=== PATIENT | male | born 1945 | race Caucasian/White ===

== ENCOUNTER → 2021-03-25 | Emergency (ER) | payer MEDICARE ==
[~2021-03-25] VITALS: Ht 177.8 cm; Wt 84.0 kg
[2021-03-25 09:03] VITALS: BP 117/76
== END | disposition home or self-care (01) ==
LOC: ER 08:49
DX: U07.1 COVID-19 (principal); E86.0 Dehydration; R06.02 Shortness of breath
CPT/HCPCS: 71045; 99283

== ENCOUNTER 2021-04-02 09:02 | Emergency (ER) | payer MEDICARE ==
[~2021-04-02] VITALS: Ht 177.8 cm; Wt 84.1 kg
[2021-04-02 09:58] LABS: EOSINOPHILS # (AUTO) 0.2 X10'3 (0-0.9); LYMPHOCYTES # (AUTO) 1.1 X10'3 (1.1-4.8); MEAN PLATELET VOLUME 7.4 FL (7.4-10.4); MONOCYTES # (AUTO) 1.4 X10'3 (0-0.9)
[2021-04-02 09:59] LABS: BASOPHILS % (AUTO) 0.6 % (0-1); EOSINOPHILS % (AUTO) 2.6 % (0-6); HEMATOCRIT 50.7 % (42.0-52.0); HEMOGLOBIN 17.2 g/dl (14.0-17.9); LYMPHOCYTES % (AUTO) 16.7 % (21-51); MEAN CORPUSCULAR HEMOGLOBIN 32.1 PG (27.0-31.0); MEAN CORPUSCULAR HGB CONC 33.8 g/dL (33.0-36.5); MEAN CORPUSCULAR VOLUME 94.9 FL (78-98); MONOCYTES % (AUTO) 20.9 % (2-12); NEUTROPHILS % (AUTO) 59.2 % (42-75); PLATELET COUNT 600 X10'3 (140-440); RED BLOOD COUNT 5.34 X10'6 (4.70-6.10); RED CELL DISTRIBUTION WIDTH 13.1 % (11.5-14.5); WHITE BLOOD COUNT 6.7 X10'3 (4.5-11.0)
[2021-04-02] MEDS ORDERED: [UNRECOGNIZED DRUG - OTHER] IV ONE (10:10)
[2021-04-02 10:20] LABS: PLATELET ESTIMATE INCREASED; TOTAL CELLS COUNTED 100
[2021-04-02 12:44] VITALS: BP 117/80
== END 2021-04-02 12:46 | disposition home or self-care (01) ==
LOC: ER 09:03
DX: U07.1 COVID-19 (principal); J18.9 Pneumonia, unspecified organism
CPT/HCPCS: 36415; 71045; 85007; 85025; 99284; M0243; Q0243

== ENCOUNTER 2024-04-05 09:19 | Inpatient (IN) | payer MEDICARE, OTHER ==
[~2024-04-05] VITALS: Ht 177.8 cm; Wt 87.4 kg
[2024-04-05 10:18] LABS: BASOPHILS % (AUTO) 0.3 % (0-1); EOSINOPHILS % (AUTO) 0 % (0-6); HEMATOCRIT 56.4 % (42.0-52.0); LYMPHOCYTES # (AUTO) 0.4 X10'3 (1.1-4.8); LYMPHOCYTES % (AUTO) 6.1 % (21-51); MEAN CORPUSCULAR HEMOGLOBIN 32.6 PG (27.0-31.0); MEAN CORPUSCULAR HGB CONC 34.5 g/dL (33.0-36.5); MEAN CORPUSCULAR VOLUME 94.4 FL (78-98); MEAN PLATELET VOLUME 8.1 FL (7.4-10.4); MONOCYTES % (AUTO) 14.6 % (2-12); NEUTROPHILS # (AUTO) 5.1 X10'3 (1.8-7.7); PLATELET COUNT 173 X10'3 (140-440); RED BLOOD COUNT 5.97 X10'6 (4.70-6.10); RED CELL DISTRIBUTION WIDTH 13.5 % (11.5-14.5); WHITE BLOOD COUNT 6.5 X10'3 (4.5-11.0)
[2024-04-05 10:20] LABS: HEMOGLOBIN 19.4 g/dl (14.0-17.9)
[2024-04-05 10:30] LABS: ALANINE AMINOTRANSFERASE 23 U/L (12-78); ALBUMIN 3.5 G/DL (3.4-5.0); ALBUMIN/GLOBULIN RATIO 0.7 (1.1-1.5); ALKALINE PHOSPHATASE 70 IU/L (46-116); ANION GAP 15 (8-16); ASPARTATE AMINO TRANSFERASE 23 U/L (10-37); BILIRUBIN,TOTAL 0.6 MG/DL (0.1-1.0); BLOOD UREA NITROGEN 58 MG/DL (7-18); BUN/CREATININE RATIO 21.4 (10.0-20.0); CALCIUM 9.1 MG/DL (8.5-10.1); CHLORIDE 90 MMOL/L (99-107); CREATININE 2.71 MG/DL (0.60-1.10); GLUCOSE 118 MG/DL (70-104); SODIUM 129 MMOL/L (135-145); TOTAL CARBON DIOXIDE 23.8 MMOL/L (24-32); TOTAL PROTEIN 8.2 G/DL (6.4-8.2); eCRCL 24 ML/MIN; eGFR 23 ML/MIN
[2024-04-05 10:32] LABS: POTASSIUM 2.6 MMOL/L (3.5-5.1)
[2024-04-05] MEDS ORDERED: potassium Cl 20 mEq SR tablet PO PRN (10:35)
[2024-04-05] MEDS ORDERED: potassium Cl 40MEQ/270ML bag 250 ML IV PRN (10:35)
[2024-04-05] MEDS ORDERED: potassium Cl 40MEQ/1/2NS 520ml 520 ML IV PRN (10:35)
[2024-04-05] MEDS ORDERED: magnesium sulf-water 2g/50mL 50 ML IV PRN ×2 (10:35→11:15)
[2024-04-05] MEDS ORDERED: potassium CL 10mEq/100ml bag 100 ML IV PRN (10:35)
[2024-04-05] MEDS ORDERED: magnesium sulf-water 4G/100mL 100 ML IV PRN ×2 (10:35→11:15)
[2024-04-05] MEDS: ondansetron/PF 4mg/2ml inj IV ONE (10:53)
[2024-04-05] MEDS: normal saline 1000ML IV soln IVB ONE (10:53)
[2024-04-05] MEDS: potassium Cl 20mEq/100mL bag 100 ML IV PRN (10:57)
[2024-04-05] MEDS ORDERED: magnesium Cl slow-release 64mg tablet PO PRN (11:15)
[2024-04-05] MEDS ORDERED: magnesium hydroxide 30ml (MOM) UD suspension PO PRN (11:15)
[2024-04-05] MEDS ORDERED: ondansetron/PF 4mg/2ml inj IV PRN (11:15)
[2024-04-05] MEDS ORDERED: acetaminophen 325mg tablet PO PRN (11:15)
[2024-04-05 11:30] LABS: TOTAL CELLS COUNTED 100
[2024-04-05 11:31] LABS: PLATELET ESTIMATE NORMAL; TOXIC GRANULATION 2+; TOXIC VACUOLATION FEW
[2024-04-05] MEDS: normal saline 1000ml 1,000 ML IV SCH (11:38)
[2024-04-05] MEDS ORDERED: furosemide 10 MG/1 ML 10ml inj IV ONE (12:00)
[2024-04-05 12:01] LABS: HEMOGLOBIN A1C 5.3 % (4.5-6.2)
[2024-04-05] MEDS: normal saline 1000ml 1,000 ML IV ONE (12:45)
[2024-04-05 13:04] LABS: MAGNESIUM 2.2 MG/DL (1.5-2.4)
[2024-04-05 13:35] LABS: BILIRUBIN,URINE SMALL (Neg); CLARITY,URINE SLIGHTLY CLOUDY (Clear); COLOR,URINE YELLOW (Yellow); GLUCOSE, URINE NEGATIVE (Neg); KETONES,URINE 15 mg/dl (Neg); LEUKOCYTE ESTERASE ,URINE NEGATIVE (Neg); NITRITES, URINE NEGATIVE (Neg); OCCULT BLOOD,URINE MODERATE (Neg); PROTEIN,URINE 30 mg/dl (Neg); UROBILINOGEN,URINE 0.2 E.U/dL (0.2-1.0)
[2024-04-05 13:37] LABS: UA COLLECTION TYPE NON-SPECIFIED
[2024-04-05 13:42] LABS: BACTERIA,URINE FEW /HPF (Neg); MUCUS STRANDS FEW /LPF (Neg); SQUAMOUS EPITHELIAL CELL,UR FEW /LPF (FEW); WBC,URINE 0-4 /HPF (0-4)
[2024-04-05] MEDS: metroNIDAZOLE-Flagyl 500mg/NS 100 ML IV SCH (17:20)
[2024-04-05] MEDS: ringers solution, lacted 1,000 ML IV ONE (18:39)
[2024-04-05] MEDS: CefTRIAXone/D5W-Rocephin 1gm 50 ML IV SCH (19:15)
[2024-04-05] MEDS: mag hydrox/Alum hydrox/simeth 30ml oral suspension PO PRN (19:54)
[2024-04-05 21:00] VITALS: BP 130/76; PULSE 107; RESP 16; TEMP 98.5; O2SAT 97
[2024-04-05] MEDS: K and/or MAG REPLACEMENT MC SCH (23:00)
[2024-04-05] MEDS: potassium Cl 40MEQ/1/2NS 520ml 520 ML IV PRN (23:02)
[2024-04-05] MEDS: heparin, porcine 5000 units/ml vial SQ SCH (23:17)
[2024-04-06] VITALS (7 sets, daily range): BP systolic 103–147; BP diastolic 70–83; PULSE 78–96; RESP 13–18; TEMP 97.8–98.7; O2SAT 95–97
[2024-04-06] MEDS: metroNIDAZOLE-Flagyl 500mg/NS 100 ML IV SCH (05:16)
[2024-04-06 07:02] LABS: BASOPHILS % (AUTO) 0.2 % (0-1); EOSINOPHILS % (AUTO) 0 % (0-6); HEMATOCRIT 49.9 % (42.0-52.0); HEMOGLOBIN 17.4 g/dl (14.0-17.9); LYMPHOCYTES # (AUTO) 0.5 X10'3 (1.1-4.8); LYMPHOCYTES % (AUTO) 5.7 % (21-51); MEAN CORPUSCULAR HGB CONC 34.8 g/dL (33.0-36.5); MEAN CORPUSCULAR VOLUME 94.7 FL (78-98); MEAN PLATELET VOLUME 8.2 FL (7.4-10.4); MONOCYTES # (AUTO) 1.3 X10'3 (0-0.9); MONOCYTES % (AUTO) 16.2 % (2-12); NEUTROPHILS # (AUTO) 6.4 X10'3 (1.8-7.7); NEUTROPHILS % (AUTO) 77.9 % (42-75); PLATELET COUNT 157 X10'3 (140-440); RED BLOOD COUNT 5.27 X10'6 (4.70-6.10); RED CELL DISTRIBUTION WIDTH 13.4 % (11.5-14.5); WHITE BLOOD COUNT 8.2 X10'3 (4.5-11.0)
[2024-04-06 07:20] LABS: C DIFF ANTIGEN NEGATIVE (NEGATIVE); C DIFF SPECIMEN=DIARRHEA? ACCEPTABLE; C DIFFICILE TOXINS A&B NEGATIVE (Neg)
[2024-04-06 07:31] LABS: ALANINE AMINOTRANSFERASE 26 U/L (12-78); ALBUMIN 2.7 G/DL (3.4-5.0); ALBUMIN/GLOBULIN RATIO 0.7 (1.1-1.5); ALKALINE PHOSPHATASE 56 IU/L (46-116); ANION GAP 12 (8-16); ASPARTATE AMINO TRANSFERASE 29 U/L (10-37); BILIRUBIN,TOTAL 0.4 MG/DL (0.1-1.0); BLOOD UREA NITROGEN 36 MG/DL (7-18); CALCIUM 8.2 MG/DL (8.5-10.1); CHLORIDE 99 MMOL/L (99-107); CHOLESTEROL 156 MG/DL (0-200); CREATININE 1.64 MG/DL (0.60-1.10); GLUCOSE 98 MG/DL (70-104); HDL CHOLESTEROL 39 MG/DL (35-60); LDL CHOLESTEROL 83 MG/DL (50-100); MAGNESIUM 2.1 MG/DL (1.5-2.4); SODIUM 136 MMOL/L (135-145); TOTAL CARBON DIOXIDE 24.7 MMOL/L (24-32); TOTAL PROTEIN 6.5 G/DL (6.4-8.2); TRIGLYCERIDES 136 MG/DL (20-135); eCRCL 39 ML/MIN; eGFR 41 ML/MIN
[2024-04-06 07:35] LABS: POTASSIUM 2.8 MMOL/L (3.5-5.1)
[2024-04-06] MEDS: potassium Cl 20 mEq SR tablet PO PRN ×2 (07:58→21:46)
[2024-04-06] MEDS: potassium Cl 20mEq in NS 1,000 ML IV SCH (08:03)
[2024-04-06 08:30] LABS: PLATELET ESTIMATE NORMAL; TOTAL CELLS COUNTED 100
[2024-04-06] MEDS: CefTRIAXone/D5W-Rocephin 1gm 50 ML IV SCH (19:36)
[2024-04-06 20:03] LABS: MAGNESIUM 1.9 MG/DL (1.5-2.4); POTASSIUM 3.2 MMOL/L (3.5-5.1)
[2024-04-07 07:15] LABS: BASOPHILS % (AUTO) 0.3 % (0-1); EOSINOPHILS % (AUTO) 0.1 % (0-6); HEMATOCRIT 49.8 % (42.0-52.0); HEMOGLOBIN 17.1 g/dl (14.0-17.9); LYMPHOCYTES # (AUTO) 0.6 X10'3 (1.1-4.8); LYMPHOCYTES % (AUTO) 7.5 % (21-51); MEAN CORPUSCULAR HEMOGLOBIN 32.8 PG (27.0-31.0); MEAN CORPUSCULAR HGB CONC 34.3 g/dL (33.0-36.5); MEAN CORPUSCULAR VOLUME 95.5 FL (78-98); MEAN PLATELET VOLUME 8.2 FL (7.4-10.4); MONOCYTES # (AUTO) 1.5 X10'3 (0-0.9); NEUTROPHILS # (AUTO) 6.2 X10'3 (1.8-7.7); NEUTROPHILS % (AUTO) 74.1 % (42-75); PLATELET COUNT 157 X10'3 (140-440); RED BLOOD COUNT 5.21 X10'6 (4.70-6.10); RED CELL DISTRIBUTION WIDTH 13.6 % (11.5-14.5); WHITE BLOOD COUNT 8.4 X10'3 (4.5-11.0)
[2024-04-07 07:35] LABS: ALANINE AMINOTRANSFERASE 20 U/L (12-78); ALBUMIN 2.5 G/DL (3.4-5.0); ALBUMIN/GLOBULIN RATIO 0.7 (1.1-1.5); ALKALINE PHOSPHATASE 57 IU/L (46-116); ANION GAP 10 (8-16); ASPARTATE AMINO TRANSFERASE 23 U/L (10-37); BILIRUBIN,TOTAL 0.3 MG/DL (0.1-1.0); BLOOD UREA NITROGEN 29 MG/DL (7-18); BUN/CREATININE RATIO 22.3 (10.0-20.0); CALCIUM 8.3 MG/DL (8.5-10.1); CHLORIDE 105 MMOL/L (99-107); GLUCOSE 109 MG/DL (70-104); MAGNESIUM 2.2 MG/DL (1.5-2.4); POTASSIUM 3.1 MMOL/L (3.5-5.1); SODIUM 135 MMOL/L (135-145); TOTAL CARBON DIOXIDE 20.5 MMOL/L (24-32); TOTAL PROTEIN 6.3 G/DL (6.4-8.2); eCRCL 49 ML/MIN; eGFR 54 ML/MIN
[2024-04-07 08:00] VITALS: RESP 16; O2SAT 98
[2024-04-07 08:32] LABS: PLATELET ESTIMATE NORMAL; TOTAL CELLS COUNTED 100
[2024-04-07] MEDS ORDERED: NO HOME MEDS (18:12)
[2024-04-07 20:00] VITALS: RESP 14; O2SAT 96
[2024-04-08 06:07] LABS: BASOPHILS # (AUTO) 0.1 X10'3 (0-0.2); BASOPHILS % (AUTO) 0.8 % (0-1); EOSINOPHILS # (AUTO) 0.1 X10'3 (0-0.9); EOSINOPHILS % (AUTO) 1.4 % (0-6); HEMATOCRIT 47.9 % (42.0-52.0); HEMOGLOBIN 16.2 g/dl (14.0-17.9); LYMPHOCYTES # (AUTO) 1.2 X10'3 (1.1-4.8); LYMPHOCYTES % (AUTO) 15.5 % (21-51); MEAN CORPUSCULAR HEMOGLOBIN 32.2 PG (27.0-31.0); MEAN CORPUSCULAR HGB CONC 33.9 g/dL (33.0-36.5); MEAN CORPUSCULAR VOLUME 95.1 FL (78-98); MEAN PLATELET VOLUME 8.1 FL (7.4-10.4); MONOCYTES # (AUTO) 1.5 X10'3 (0-0.9); MONOCYTES % (AUTO) 20.1 % (2-12); NEUTROPHILS # (AUTO) 4.7 X10'3 (1.8-7.7); NEUTROPHILS % (AUTO) 62.2 % (42-75); PLATELET COUNT 177 X10'3 (140-440); RED BLOOD COUNT 5.04 X10'6 (4.70-6.10); RED CELL DISTRIBUTION WIDTH 13.6 % (11.5-14.5); WHITE BLOOD COUNT 7.5 X10'3 (4.5-11.0)
[2024-04-08 06:18] LABS: ALANINE AMINOTRANSFERASE 27 U/L (12-78); ALBUMIN 2.4 G/DL (3.4-5.0); ALBUMIN/GLOBULIN RATIO 0.7 (1.1-1.5); ALKALINE PHOSPHATASE 54 IU/L (46-116); ANION GAP 6 (8-16); ASPARTATE AMINO TRANSFERASE 30 U/L (10-37); BILIRUBIN,TOTAL 0.3 MG/DL (0.1-1.0); BLOOD UREA NITROGEN 26 MG/DL (7-18); CALCIUM 8.4 MG/DL (8.5-10.1); CHLORIDE 106 MMOL/L (99-107); GLUCOSE 95 MG/DL (70-104); POTASSIUM 3.3 MMOL/L (3.5-5.1); SODIUM 138 MMOL/L (135-145); TOTAL CARBON DIOXIDE 25.9 MMOL/L (24-32); eCRCL 49 ML/MIN; eGFR 54 ML/MIN
[2024-04-08 06:25] LABS: TOTAL CELLS COUNTED 100
[2024-04-08 06:26] LABS: PLATELET ESTIMATE NORMAL
[2024-04-08] MEDS ORDERED: CEFD300C3 PO (07:35)
[2024-04-08] MEDS ORDERED: METR-159 PO (07:35)
[2024-04-08] MEDS ORDERED: LACT1CAP65 PO (08:46)
[2024-04-08] MEDS: metroNIDAZOLE-Flagyl 500mg/NS 100 ML IV STA (09:09)
[2024-04-08] MEDS: CefTRIAXone/D5W-Rocephin 1gm 50 ML IV ONE (09:15)
[2024-04-08] MEDS ORDERED: PANT-47 PO (11:08)
== END 2024-04-08 11:25 | disposition home or self-care (01) | DRG 871 ==
LOC: ER 09:19 → ED HOLD 11:04 → EDBEDREQ 19:56 → ORTHO 4S 21:07
PROVIDERS: ADMIT Family Medicine; ATTEND Family Medicine
DX: A41.9 Sepsis, unspecified organism (principal); N17.0 Acute kidney failure with tubular necrosis; A09 Infectious gastroenteritis and colitis, unspecified; R65.20 Severe sepsis without septic shock; E86.1 Hypovolemia; E87.6 Hypokalemia; E86.0 Dehydration; N40.0 Benign prostatic hyperplasia without lower urinary tract symptoms; Z20.822 Contact with and (suspected) exposure to COVID-19; C44.81 Basal cell carcinoma of overlapping sites of skin; D75.1 Secondary polycythemia; N18.9 Chronic kidney disease, unspecified; Z86.16 Personal history of COVID-19
CPT/HCPCS: 36415; 71045; 74176; 76700; 80053; 80061; 81001; 83036; 83605; 83735; 83880; 84132; 84145; 85007; 85025; 87045; 87046; 87077; 87081; 87186; 87324; 87449; 87502; 87503; 87811; 89055; 93005; 99285; A6250; G0378; J0696; J1644; J2405; J3480; J3490; J7030; J7120

== ENCOUNTER 2024-04-23 08:28 | Emergency (ER) | payer MEDICARE, OTHER ==
[~2024-04-23] VITALS: Ht 177.8 cm; Wt 70.0 kg
[~2024-04-23 08:28] MED LIST: LACT1CAP65 PO; NO HOME MEDS; PANT-47 PO
[2024-04-23 08:43] VITALS: TEMP 98.3
[2024-04-23] MEDS: glycopyrrolate 0.2mg/ml inj IV ONE (08:49)
[2024-04-23] MEDS: normal saline 1000ML IV soln IVB ONE ×2 (08:50→11:26)
[2024-04-23 09:21] LABS: BASOPHILS % (AUTO) 0.6 % (0-1); EOSINOPHILS % (AUTO) 0.2 % (0-6); HEMATOCRIT 48.4 % (42.0-52.0); HEMOGLOBIN 16.2 g/dl (14.0-17.9); LYMPHOCYTES # (AUTO) 0.6 X10'3 (1.1-4.8); LYMPHOCYTES % (AUTO) 7.8 % (21-51); MEAN CORPUSCULAR HEMOGLOBIN 31.6 PG (27.0-31.0); MEAN CORPUSCULAR HGB CONC 33.5 g/dL (33.0-36.5); MEAN CORPUSCULAR VOLUME 94.1 FL (78-98); MEAN PLATELET VOLUME 7.4 FL (7.4-10.4); MONOCYTES # (AUTO) 0.6 X10'3 (0-0.9); MONOCYTES % (AUTO) 8.7 % (2-12); NEUTROPHILS # (AUTO) 5.9 X10'3 (1.8-7.7); NEUTROPHILS % (AUTO) 82.7 % (42-75); PLATELET COUNT 215 X10'3 (140-440); RED BLOOD COUNT 5.14 X10'6 (4.70-6.10); RED CELL DISTRIBUTION WIDTH 13.4 % (11.5-14.5); WHITE BLOOD COUNT 7.1 X10'3 (4.5-11.0)
[2024-04-23 09:34] LABS: BILIRUBIN,URINE NEGATIVE (Neg); CLARITY,URINE CLEAR (Clear); COLOR,URINE YELLOW (Yellow); GLUCOSE, URINE NEGATIVE (Neg); KETONES,URINE 15 mg/dl (Neg); LEUKOCYTE ESTERASE ,URINE NEGATIVE (Neg); NITRITES, URINE NEGATIVE (Neg); OCCULT BLOOD,URINE SMALL (Neg); PROTEIN,URINE NEGATIVE (Neg); UROBILINOGEN,URINE 0.2 E.U/dL (0.2-1.0)
[2024-04-23 09:36] LABS: ALANINE AMINOTRANSFERASE 37 U/L (12-78); ALBUMIN 3.4 G/DL (3.4-5.0); ALBUMIN/GLOBULIN RATIO 0.9 (1.1-1.5); ALKALINE PHOSPHATASE 61 IU/L (46-116); ANION GAP 10 (8-16); ASPARTATE AMINO TRANSFERASE 20 U/L (10-37); BILIRUBIN,TOTAL 0.7 MG/DL (0.1-1.0); BLOOD UREA NITROGEN 17 MG/DL (7-18); BUN/CREATININE RATIO 13.4 (10.0-20.0); CALCIUM 8.8 MG/DL (8.5-10.1); CHLORIDE 105 MMOL/L (99-107); CREATININE 1.27 MG/DL (0.60-1.10); GLUCOSE 100 MG/DL (70-104); LIPASE 41 U/L (16-77); POTASSIUM 3.8 MMOL/L (3.5-5.1); SODIUM 136 MMOL/L (135-145); TOTAL PROTEIN 7.2 G/DL (6.4-8.2); eCRCL 48 ML/MIN; eGFR 55 ML/MIN
[2024-04-23 09:39] LABS: UA COLLECTION TYPE CLN CATCH MIDSTREAM
[2024-04-23 09:41] LABS: BACTERIA,URINE NONE SEEN /HPF (Neg); SQUAMOUS EPITHELIAL CELL,UR FEW /LPF (FEW); WBC,URINE 0-4 /HPF (0-4)
[2024-04-23] MEDS ORDERED: LEVO-65 PO (11:13)
[2024-04-23] MEDS: loperamide 2mg capsule PO ONE (11:21)
[2024-04-23 12:15] VITALS: BP 138/82; PULSE 96; RESP 21; O2SAT 97
[2024-04-23 13:51] LABS: C DIFF ANTIGEN NEGATIVE (NEGATIVE); C DIFF SPECIMEN=DIARRHEA? ACCEPTABLE; C DIFFICILE TOXINS A&B NEGATIVE (Neg)
== END 2024-04-23 13:30 | disposition home or self-care (01) ==
LOC: ER 08:29
DX: R19.7 Diarrhea, unspecified (principal); R11.0 Nausea; R10.9 Unspecified abdominal pain; Z88.1 Allergy status to other antibiotic agents; Z79.899 Other long term (current) drug therapy; Z79.2 Long term (current) use of antibiotics
CPT/HCPCS: 36415; 80053; 81001; 83690; 84145; 85025; 87045; 87046; 87324; 87449; 96361; 96374; 99285; J3490; J7030; 87077; 87186